=== PATIENT | female | born 1955 | race Caucasian/White ===

== ENCOUNTER → 2016-08-16 | Outpatient (CLI) | payer OTHER ==
[~2016-08-16] MED LIST: APPLE CIDER VIN1 TAB PO; ELITE MAGNESIUM1 TAB PO; ENABLEX15 MG PO; FIBER CHOICE1 CTB PO; PREVACID 15MG15 M1 PO; SYNTHROID0.1 MG PO; VEGETABLE LAXAT1 TAB PO; XANAX 0.5MG0.5 MG PO; XANAX1 MG PO; [UNRECOGNIZED DRUG - OTHER]; [UNRECOGNIZED DRUG - OTHER]
== END ==
LOC: COL.RAD 10:30
DX: M50.022 Cervical disc disorder at C5-C6 level with myelopathy (principal); G96.8 Other specified disorders of central nervous system; M54.12 Radiculopathy, cervical region

== ENCOUNTER → 2017-07-01 | Outpatient (CLI) | payer OTHER ==
[~2017-07-01] VITALS: Ht 165.1 cm; Wt 92.0 kg
[~2017-07-01] MED LIST changes: +FIORICET 325 MG1 TA1 PO; +ULTRAM 50MG TAB50 MG PO; +VOLTAREN 75 DR75 MG PO; +ZANAFLEX 4MG TAB4 MG PO
[2017-07-01 13:30] VITALS: BP 150/89; PULSE 89
[2017-07-01 14:23] VITALS: BP 152/81; PULSE 69
[2017-07-01 14:37] VITALS: BP 147/78; PULSE 75
[2017-07-01 14:50] VITALS: BP 126/71; PULSE 74
== END ==
LOC: COL.RAD 13:06
DX: M54.12 Radiculopathy, cervical region (principal)
CPT/HCPCS: J1100

== ENCOUNTER → 2017-08-05 | Outpatient (CLI) | payer OTHER ==
[~2017-08-05] VITALS: Ht 165.1 cm; Wt 92.3 kg
[~2017-08-05] MED LIST changes: -APPLE CIDER VIN1 TAB PO; +LAXATIVE FOR WOM5 MG PO; +MULTIPLE VITAMI1 CAP PO; -SYNTHROID0.1 MG PO; +SYNTHROID0.1 MG/TAB PO; -VEGETABLE LAXAT1 TAB PO
[2017-08-05 12:00] VITALS: BP 148/87; PULSE 87
[2017-08-05 12:48] VITALS: BP 152/97; PULSE 66
== END ==
LOC: COL.RAD 11:40
DX: M54.12 Radiculopathy, cervical region (principal)
CPT/HCPCS: J1100

== ENCOUNTER → 2018-04-23 | Outpatient (CLI) | payer MEDICARE, OTHER | LOC: COL.RAD 12:30 | DX: M50.11 Cervical disc disorder with radiculopathy, high cervical region (principal) ==

== ENCOUNTER → 2021-08-31 | Outpatient (CLI) | payer MEDICARE, OTHER | LOC: COL.CARD 11:53 | DX: R00.2 Palpitations (principal) ==

== ENCOUNTER → 2023-01-24 | Outpatient (CLI) | payer MEDICARE, OTHER ==
[~2023-01-24] VITALS: Ht 165.1 cm; Wt 99.5 kg
[~2023-01-24] MED LIST changes: +ALEVE LIQCAPS PO; +BUSPAR10 MG PO; +DETROL 2MG TAB2 MG PO; +NORCO 325 MG-51 TAB PO; +PREDNISONE 5MG5 MG PO; +PRILOSEC 20MG20 MG PO; +PROVENTIL0.09 MG/A1 IH; +REQUIP 1MG T1 MG/TAB PO; +TOPROL XL 25MG25 MG PO
[2023-01-24 07:05] VITALS: BP 125/82; PULSE 73; TEMP 97.8
[2023-01-24 08:05] VITALS: BP 147/83; PULSE 68
== END ==
LOC: COL.RAD 06:07
DX: M54.12 Radiculopathy, cervical region (principal)
CPT/HCPCS: J1100